=== PATIENT | female | born 1975 | race African-American/Black ===

== ENCOUNTER 2020-03-02 22:16 | Emergency (ER) | payer OTHER, SELFPAY ==
--- NOTE | ~2020-03-02 | XR_ITS ---
EXAMINATION: XR chest 1V portable INDICATION: Cough TECHNIQUE: Portable AP chest at 2343 hours COMPARISON: 08/02/2011 FINDINGS: There are airspace opacities of the mid and lower lung zones. No pleural effusion or pneumo thorax is identified. The heart size is normal for technique. IMPRESSION: 1. Airspace opacities of the mid and lower lung zones, consistent with atelectasis versus pneumonia. Reviewed, dictated and finalized at location A. IMPRESSION: 1. Airspace opacities of the mid and lower lung zones, consistent with atelecta sis versus pneumonia.
[2020-03-02 22:27] VITALS: BP 182/92; PULSE 71; RESP 16; TEMP 36.6; O2SAT 100
[2020-03-02 22:52] VITALS: BP 175/90; PULSE 75; RESP 18; TEMP 36.6; O2SAT 100
--- NOTE | 2020-03-02 23:56 | ED.GENADULT ---
HPI - General Adult General Chief complaint: Unspecified Stated complaint: cant' taste or smell anything/sob Time Seen by Provider: 03/02/20 23:04 Source: RN notes reviewed History of Present Illness HPI narrative: Patient presents emergency department from home for upper respiratory infection. Patient states for the past 2 days she has been having some mild shortness of breath with exertion a mild nonproductive cough and a loss of taste and smell. 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 She denies any fevers or chills sore throat earache chest pain abdominal pain nausea vomiting or any other symptoms Related Data Allergies Allergy/AdvReac Type Severity Reaction Status Date / Time No Known Allergies Allergy Verified 03/02/20 22:58 Review of Systems Review of Systems: Narrative: Gen.: Denies fevers or chills Eyes: Denies eye pain or visual change ENT: Denies congestion reports loss of taste and smell Respiratory: Reports shortness of breath only with exertion and mild nonproductive cough CV: Denies chest pain or palpitations GI: Denies abdominal pain nausea, emesis or diarrhea denies any chance of Musculoskeletal: Denies back pain or muscle pain Neuro: Denies numbness, tingling, weakness or focal weakness Skin: Denies rash Except as documented, all other systems reviewed and negative PMFSH Past Medical History Medical History (Updated 03/02/20 @ 23:58 by Jasen Oropeza DO) Patient denies significant medical history Social History Social History (Updated 03/02/20 @ 23:58 by Jasen Oropeza DO) Smoking status: Never smoker Exam Narrative: Exam Narrative: APPEARANCE: No acute distress, nontoxic, resting in bed EYES: EOMI HEENT: Normocephalic, atraumatic, OMM RESPIRATORY: No respiratory distress Clear to auscultation bilaterally with no rhonchi wheezing or rales. CARDIOVASCULAR: Regular rate and rhythm without murmurs rubs or gallops. ABDOMINAL: Soft, nontender, nondistended, no rebound or guarding MUSCULOSKELETAl: Moves all extremities. No clubbing, cyanosis or edema. NEURO: Awake and alert. Following commands, speech normal, no focal deficits SKIN:: Warm, dry. No rashes lesions or abrasions PSYCHIATRIC: Normal affect/mood, Course Course Emergency Course: Discussed with patient results of workup and diagnosis. Discussed need for follow-up with primary care, proper use of medication, and reasons to return to the emergency department. Patient understands and agrees to current treatment plan Vital Signs Vital signs: Vital Signs Temperature 97.9 F 03/02/20 22:27 Pulse Rate 71 03/02/20 22:27 Respiratory Rate 16 03/02/20 22:27 Blood Pressure 182/92 H 03/02/20 22:27 Pulse Oximetry 100 03/02/20 22:27 Temperature 98 F 03/02/20 22:52 Pulse Rate 75 03/02/20 22:52 Respiratory Rate 18 03/02/20 22:52 Blood Pressure 175/90 H 03/02/20 22:52 Pulse Oximetry 100 03/02/20 22:52 Medical Decision Making Vital Signs Vital Signs: Vital Signs Temperature 97.9 F 03/02/20 22:27 Pulse Rate 71 03/02/20 22:27 Respiratory Rate 16 03/02/20 22:27 Blood Pressure 182/92 H 03/02/20 22:27 Pulse Oximetry 100 03/02/20 22:27 Temperature 98 F 03/02/20 22:52 Pulse Rate 75 03/02/20 22:52 Respiratory Rate 18 03/02/20 22:52 Blood Pressure 175/90 H 03/02/20 22:52 Pulse Oximetry 100 03/02/20 22:52 Discharge Plan Discharge Clinical Impression: Exposure to COVID-19 virus, Suspected COVID-19 virus infection Patient Disposition: Home, Self-Care Condition: Stable Instructions: Antibiotic Form, COVID-19 (Coronavirus Disease 2019) (ED) Additional Instructions: Return for increasing shortness of breath fever or any other symptoms of concern. You need to remain on self quarantine until your test results have come back Prescriptions: New
[2020-03-03 00:15] VITALS: BP 177/83; PULSE 82; RESP 18; TEMP 36.6; O2SAT 99
[2020-03-03 10:37] LABS: SARS-CoV-2 RNA PCR Positive
== END 2020-03-03 00:17 | disposition home or self-care (01) ==
PROVIDERS: Emergency Provider Emergency Medicine; PCP Family Medicine
DX: U07.1 COVID-19 (principal)
CPT/HCPCS: 71045; 87635; 99283; C9803; U0003

== ENCOUNTER 2023-11-24 12:15 | Emergency (ER) | payer OTHER, SELFPAY ==
--- NOTE | ~2023-11-24 | CT_ITS ---
EXAMINATION: CTA abdomen pelvis DATE: 11/24/2023 15:37 INDICATION: Mid abdominal pain. TECHNIQUE: Computed tomographic angiography (CTA) of the abdomen and pelvis was performed with 100 mL Omnipaque-350 intravenous contrast. Automated exposure control and iterative reconstruction techniqu e were employed. The dose-length product was 900.84 mGy-cm. Maximum intensity projection 3D-reconstru ctions of the aorta and other arteries were constructed by the technologist on a separate workstation . COMPARISON: None. FINDINGS: The visualized portions of the lung bases demonstrate mild atelectasis. No pleural effusion . The heart size is normal. No pericardial effusion. There is a 12 mm mass in left hepatic lobe. Ther e are cysts in the liver measuring up to 7 mm. The the spleen, gallbladder, pancreas, adrenal glands, and right kidney are normal. There is cortical thinning of left kidney. There is a 3.1 cm cyst in le ft ovary. There is a 3.4 cm cyst in right ovary. There is a 2.6 cm uterine fibroid. There is divertic ulosis of the colon without evidence of diverticulitis. The appendix is normal. There is no significa nt stenosis of abdominal aorta, celiac axis, superior mesenteric artery, the renal arteries, or infer ior mesenteric artery. There is physiologic fluid in the pelvis. There are no pathologically enlarged lymph nodes. There is fat stranding in the anterior abdominal wall. There is severe lumbar spondylos is. IMPRESSION: 1. Fat stranding in the anterior abdominal wall, most likely scarring from prior surgery such as abdo minoplasty. 2. 12 mm liver mass, which may be benign or malignant. Abdomen MRI without and with contrast is recom mended. 3. Bilateral ovarian cysts, likely follicular cysts. 4. Uterine fibroid. Reviewed, dictated and finalized at location E. NE SURVEYOR IMPRESSION: 1. Fat stranding in the anterior abdominal wall, most likely scarring from prio r surgery such as abdominoplasty. 2. 12 mm liver mass, which may be benign or malignant. Abdomen MRI without and with contrast is recommended. 3. Bilateral ovarian cysts, likely follicular cysts. 4. Uterine fibroid.
[2023-11-24 12:43] VITALS: BP 205/95; PULSE 80; RESP 18; TEMP 36.5; O2SAT 100
[2023-11-24 13:01] LABS: Basophils Percent Auto 0.5 % (0.2-1.2); Eosinophils Absolute Auto 0.1 K/mm3 (0-0.3); Eosinophils Percent Auto 2.3 % (0-4.4); Hemoglobin 12.8 g/dL (12.0-15.0); Immature Granulocyte Absolute 0.01 K/mm3 (0.00-0.031); Immature Granulocyte Percent A 0.2 % (0-0.5); Lymphocytes Absolute Auto 1.97 K/mm3 (0.9-3.2); Lymphocytes Percent Auto 31.9 % (18.3-44.2); Mean Corpuscular HGB Conc 31.2 g/dl (32-36); Mean Corpuscular Hemoglobin 28.4 pg (26-34); Mean Corpuscular Volume 91.1 fl (80-100); Monocytes Absolute Auto 0.3 K/mm3 (0.1-0.6); Monocytes Percent Auto 5.5 % (2.6-8.5); Neutrophils Absolute Auto 3.7 K/mm3 (1.3-6.7); Neutrophils Percent Auto 59.6 % (45.5-73.1); Platelet Count Result 275 k/mm3 (150-375); Red Cell Distribution Width 13.4 % (11.5-14.5); White Blood Count 6.2 K/mm3 (4.5-10.0)
[2023-11-24 13:12] LABS: Alanine Aminotransferase 16 U/L (6-35); Albumin Level 4.2 g/dL (3.5-5.1); Alkaline Phosphatase 59 U/L (38-126); Anion Gap 5 mmol/L (8-16); Aspartate Amino Transferase 20 U/L (14-36); Bilirubin,Total 0.6 mg/dL (0.2-1.3); Blood Urea Nitrogen 13 mg/dL (7-17); Carbon Dioxide 28 mmol/L (22-30); Chloride 105 mmol/L (98-107); Estimated CRCL calculation 76 ml/min; Estimated Glomerular Filt Rate > 60; Glucose 139 mg/dL (65-110); Lipase 107 U/L (23-300); Potassium 4.3 mmol/L (3.4-5.0); Sodium 138 mmol/L (137-145)
[2023-11-24 13:15] VITALS: BP 170/95; PULSE 76; RESP 14; TEMP 36.3; O2SAT 99
[2023-11-24 13:31] LABS: Appearance Urine Clear (Clear); Bilirubin Urine Negative (Negative); Blood Urine Negative (Negative); Color Urine Yellow (Yellow); Glucose Urine UA Negative (Negative); Ketones Urine Trace mg/dL (Negative); Leukocyte Esterase Ur Negative LEU/UL (Negative); Nitrate Urine Negative (Negative); Protein Urine Negative (Negative); pH Urine 5.5 (5.0-9.0)
[2023-11-24 13:38] LABS: Add Urine Microscopic? NO
[2023-11-24 14:07] VITALS: BP 157/90; PULSE 69; RESP 12; O2SAT 100
--- NOTE | 2023-11-24 15:22 | ECG_ITS ---
Measurements Intervals [place] Rate: 76 P: 48 OK: 169 QRS: -11 QRSD: 85 T: 32 QT: 374 QTc: 421 Interpretive Statements SINUS RHYTHM MODERATE VOLTAGE CRITERIA FOR LVH, CONSIDER NORMAL VARIANT [MEETS CRITERIA IN ONE OF: R(aVL), S(V1), R(V5), R(V5/V6)+S(V1)] NONSPECIFIC T-WAVE ABNORMALITY ABNORMAL ECG NO PREVIOUS ECG AVAILABLE FOR COMPARISON Electronically Signed On 11-25-2023 8:00:50 SOCIAL SCIENCES CHAIR by Javier Diana M.D.
--- NOTE | 2023-11-24 15:24 | ED.ABDPAIN ---
HPI - Abdominal Pain General Chief Complaint: Abdominal Pain Stated Complaint: abdominal pain Time Seen by Provider: 11/24/23 14:31 Source: patient Limitations: no limitations History of Present Illness HPI narrative: Patient is a 48-year-old female presents to the emergency department complaining abdominal pain. Patient states the pain started Monday evening, states that is in her epigastric region and periumbilical region and suprapubic region, denies any she has pain in the past, notes this been constant since it started, describes as an ache, nonradiating, tried simethicone and Tylenol and ibuprofen for with no significant relief, admits to associated nausea and belching when eating. Patient denies history Gastroenterology evaluation. Patient denies urinary discomfort, urinary urgency, urinary frequency, diarrhea, melena, hematochezia, recent injuries, recent illness, vomiting, chest pain, difficulty breathing, cough, fever, numbness, weakness, history kidney stones, hematuria. Related Data Allergies Allergy/AdvReac Type Severity Reaction Status Date / Time No Known Allergies Allergy Verified 11/24/23 13:14 Review of Systems Review of Systems: A 10 system review of systems was completed on the patient and is negative except for what is stated in the HPI. Nursing and ancillary documentation was reviewed. [facility] Past Medical History Medical History (Updated 11/24/23 @ 16:49 by Darrin Martin DO) Patient denies significant medical history Social History Social History (Updated 03/02/20 @ 23:58 by Jasen Oropeza, ) Smoking status: Never smoker Comments At time of signature, I have reviewed and agree with nursing past medical, surgical, social and family history unless otherwise noted. Please see the nursing chart for further information. There is no relevant family history pertinent to the presenting complaint. Exam Narrative: CONST: No acute distress. Well nourished. HENMT: Head is normocephalic and atraumatic. Moist mucous membranes. No posterior oropharynx erythema. EYES: No conjunctival icterus, injection, or pallor. PERRL. NECK: No meningeal signs. RESP: Able to speak in full sentences. Normal respiratory effort. CTAB. CARDIO: Regular rate. Regular rhythm. 2+ DP and radial pulses bilaterally. GI: Nondistended. Soft. Mild tenderness to palpation in the epigastric and periumbilical and suprapubic region. No rebound or guarding or rigidity. Negative Rincon sign. No McBurney's point tenderness to palpation. No palpable masses or hernias. : No CVA tenderness to palpation. SKIN: No rashes or lesions noted on exposed skin. NEURO: Oriented x3. Moves all extremities. EXTREM/MSK/BACK: No pedal edema. PSYCH: Normal affect. Course Vital Signs Vital signs: Vital Signs Temperature 97.7 F 11/24/23 12:43 Pulse Rate 80 11/24/23 12:43 Respiratory Rate 18 11/24/23 12:43 Blood Pressure 205/95 H 11/24/23 12:43 Pulse Oximetry 100 11/24/23 12:43 Oxygen Delivery Room Air 11/24/23 12:43 Temperature 97.4 F L 11/24/23 13:15 Pulse Rate 75 11/24/23 16:02 Respiratory Rate 12 11/24/23 16:02 Blood Pressure 194/92 H 11/24/23 16:02 Pulse Oximetry 99 11/24/23 16:02 Oxygen Delivery Room Air 11/24/23 13:15 MDM - Abdominal Pain MDM Narrative Medical decision making narrative: Patient presents with the above complaint. Initial vitals are remarkable for no significant abnormalities. Physical examination as noted above. Plan discussed: Laboratory analysis, EKG, CT abdomen pelvis, famotidine, morphine 4 mg IV push, 1 L bolus IV fluids normal saline. Patient was reassessed at the bedside. No changes in physical exam. Patient is in no acute distress. Patient denies any significant pain at this time, resting comfortably, tolerating p.o.. Patient informed of the results, understands to follow-up with a hat cone inspector and is aware of the inciden
[2023-11-24] MEDS: SODIUM CHLORIDE 0.9% IV 1,000 ML 999 ML IV CONT (15:56)
[2023-11-24] MEDS: MORPHINE SULFATE (*CRX) 4 MG/ML INJ IV PUSH (15:58)
[2023-11-24 16:02] VITALS: BP 194/92; PULSE 75; RESP 12; O2SAT 99
[2023-11-24] MEDS: FAMOTIDINE 20 MG/2 ML VIAL IV PUSH (16:02)
[2023-11-24] MEDS: ONDANSETRON INJ 4 MG/2 ML VIAL IV PUSH (16:04)
[2023-11-24 16:15] LABS: CRP 0.5 mg/dL (<1.0)
[2023-11-24 16:24] LABS: Troponin I < 0.012 ng/mL (0.000-0.034)
== END 2023-11-24 17:53 | disposition home or self-care (01) ==
PROVIDERS: Emergency Medicine; Emergency Provider Student in an Organized Health Care Education/Training Program
DX: R10.13 Epigastric pain (principal); R11.0 Nausea; R16.0 Hepatomegaly, not elsewhere classified; N83.202 Unspecified ovarian cyst, left side; N83.201 Unspecified ovarian cyst, right side; D25.9 Leiomyoma of uterus, unspecified; R94.31 Abnormal electrocardiogram [ECG] [EKG]
CPT/HCPCS: 36415; 74174; 80053; 81003; 81025; 83605; 83690; 84484; 85025; 86140; 93005; 96361; 96374; 96375; 99284; J2270; J2405; J7030; Q9967

== ENCOUNTER 2023-11-30 16:02 | Outpatient (CLI) | payer OTHER, SELFPAY ==
--- NOTE | ~2023-11-30 | XR_ITS ---
EXAMINATION: XR abdomen/kub 1V DATE: 11/30/2023 16:30 INDICATION: High-pitched bowel sounds. Central abdominal pain. TECHNIQUE: A supine view of the abdomen on 3 radiographs was obtained. COMPARISON: None. FINDINGS: Gas in the sigmoid colon extending into the left upper quadrant. Moderate amount of stool in the asce nding and transverse colon extends to the splenic flexure. No dilated loops of gas-filled bowel to jacinto ggest obstruction. Prominent phlebolith in the right hemipelvis. No other suspicious calcification is in the abdomen or pelvis. IMPRESSION: 1. No dilated gas-filled bowel to suggest obstruction. Reviewed, dictated and finalized at location A. ER
== END 2023-11-30 16:03 | disposition home or self-care (01) ==
LOC: ANHIMG 16:03
PROVIDERS: Visit Provider Nurse Practitioner
DX: R19.15 Other abnormal bowel sounds (principal)
CPT/HCPCS: 74018

== ENCOUNTER 2023-12-22 09:01 | Outpatient (CLI) | payer OTHER, SELFPAY ==
--- NOTE | ~2023-12-22 | US_ITS ---
EXAMINATION: US pelvic complete w TV DATE: 12/22/2023 INDICATION: Benign neoplasm of connective and other soft tissues TECHNIQUE: Multiple transabdominal and endovaginal sonographic images of the pelvis were obtained. COMPARISON: CT, 11/24/2023 FINDINGS: The uterus measures 9.3 x 4.9 x 7.3 cm. There is a 3.4 x 2.8 x 2.9 cm isoechoic mass of the right uterine body, consistent with intramural fibroid. Nabothian cysts are noted in the cervix. The endometrial complex measures 4 mm. The right ovary measures 4.0 x 2.9 x 2.4 cm. The left ovary measu res 2.8 x 1.9 x 3.1 cm. There is normal vascular flow in the ovaries. There is no free fluid in the p twila. IMPRESSION: 1. Intramural fibroid of uterus. Reviewed, dictated and finalized at location B. R LODGE CLERK
--- NOTE | ~2023-12-22 | MR_ITS ---
EXAMINATION: MR abdomen wo/w con INDICATION: Liver mass on recent CT TECHNIQUE: Coronal SSFSE ARC, WATER:coronal LAVA-FLEX, Coronal 2D FIESTA FatSat, Axial SSFSE BH ARC, Axial 3D DualEcho BH, Axial SSFSE-IR, Axial DWI b=500, Axial 2D FIESTA FatSat, pre and dynamic postco ntrast Axial LAVA ARC, postcontrast Coronal In and Opposed phase LAVA FLEX COMPARISON: CT, 11/24/2023 CONTRAST: Multihance, 20 cc FINDINGS: There is a 10 mm T1 isointense, T2 hyperintense lesion in the surface of the liver abutting liver segment II. There is no enhancement after contrast administration. Small cysts of the liver me asure up to 8 mm. The spleen, pancreas, gallbladder, and adrenal glands are normal. There are no path ologically enlarged abdominal lymph nodes. The kidneys are unremarkable. Although limited by respirat ory motion, no abnormal enhancement is identified after contrast administration. IMPRESSION: 1. Benign-appearing lesion abutting liver segment II. No suspicious liver lesion identified. Reviewed, dictated and finalized at location B. FILER IMPRESSION: 1. Benign-appearing lesion abutting liver segment II. No suspicious liver lesio n identified.
== END 2023-12-22 09:02 | disposition home or self-care (01) ==
PROVIDERS: Visit Provider Nurse Practitioner
DX: D25.1 Intramural leiomyoma of uterus (principal); R16.0 Hepatomegaly, not elsewhere classified; R93.2 Abnormal findings on diagnostic imaging of liver and biliary tract
CPT/HCPCS: 74183; 76830; 76856; A9577

== ENCOUNTER 2024-02-01 00:47 | Day surgery (SDC) | payer OTHER, SELFPAY ==
[2024-01-16 13:30] VITALS: BMI 37.4
[2024-02-01 11:37] VITALS: BP 181/107; PULSE 82; RESP 18; TEMP 36.2; O2SAT 98; BMI 38.8
[2024-02-01] MEDS: LACTATED RINGERS 1,000 ML 150 ML IV CONT (11:43)
--- NOTE | 2024-02-01 12:14 | P.PNAN_ITS ---
Anes - Initial Pre Proc Eval Procedure: Operation Date: 02/01/24 13:00 Proposed Procedures p Esophagogastroduodenoscopy & Colonoscopy - Girish Oviedo MD Date/Time: 02/01/24 12:14 Surgeon: Girish Oviedo MD Pre Op Diagnosis: IBS-C, Epigastric pain,nausea Patient Data Age: 48 Gender: F Height: 1.63 m Weight: 102.7 kg Last Vital Signs Temp 97.1 F L 02/01/24 11:37 Pulse 82 02/01/24 11:37 Resp 18 02/01/24 11:37 BP 181/107 H 02/01/24 11:37 Pulse Ox 98 02/01/24 11:37 O2 Del Method Room Air 02/01/24 11:37 Allergies Allergy/AdvReac Type Severity Reaction Status Date / Time No Known Allergies Allergy Verified 02/01/24 11:35 Home Medications Medication Instructions Recorded Confirmed Type omeprazole 40 mg capsule,delayed 40 mg PO DAILY #30 caps 11/30/23 02/01/24 Rx release sucralfate 1 gram tablet (Carafate) 1 g PO ACHS #120 tabs 11/30/23 02/01/24 Rx peg 3350-electrolytes 236 240 ml PO Q10M #4,000 mL 12/18/23 Rx gram-22.74 gram-6.74 gram-5.86 gram solution (Golytely) Patient hx anesthesia problems: none Family hx anesthesia problems: none Results Review: All pre-operative results and documents have been reviewed as part of the pre- operative evaluation. [facility] Past Medical History Medical History (Updated 11/30/23 @ 16:02 by Tiffanie Mcnamara, CHRISTINA) Abdominal bloating Anemia Epigastric abdominal pain Hypertension Irritable bowel syndrome with constipation Liver mass Migraine Obesity Patient denies significant medical history Surgical History Surgical History S/P abdominoplasty S/P tonsillectomy and adenoidectomy Family History Family History Other Diabetes mellitus Heart disease Hypertension Social History Social History Smoking status: Never smoker Alcohol intake: never Substance use: never Substance use type: does not use Do You Feel Safe in your Home?: Yes Lack of Transportation: No Lack of Food: Never True Current Housing: I Have Housing Concerned About Future Housing: No Difficulty Paying Gas/Electric Bills: No Difficulty Paying for Meds: No Currently Unemployed: No Education: Trade/Vocational Certificate Difficulty w/ Childcare or Family Care: No Spiritual care concerns: No Anes - Eval Final PreProcedure Day of Procedure 02/01/24 12:14 Patient weight: obese Heart: regular rate and rhythm Lungs: clear to auscultation Airway: Mallampati scale class II Neurological: alert and oriented Last oral intake: >/= 8 hours ASA classification: III Emergent: no Anesthetic plan: proceed Anesthesia type and monitoring: general GIVS and standard monitoring Results Review: All pre-operative results and documents have been reviewed as part of the pre- operative evaluation. Informed Consent: The patient's anesthetic plan and its attendant risks and benefits were discussed with the patient/family/POA. Questions were solicited and answers provided to the satisfaction of the patient/family/POA.
--- NOTE | 2024-02-01 12:21 | PM.HPGS ---
History of Present Illness History of Present Illness Consent: Risks, benefits, and alternatives have been discussed and questions answered. Patient agrees to proceed with procedure. Chief complaint: IBS-C, Epigastric pain,nausea Narrative: Adelia Chinchilla is a 48 year old female with presentation to ER because of epigastric pain and nausea, sent home with ppi and carafate, feeling better and not longer using nsaid's. Never had scopes. CT scan no major findings, MRI showed normal liver. Review of Systems Review of Systems: All systems reviewed & are unremarkable except as noted in HPI and below PMFSH Past Medical History Medical History (Updated 02/01/24 @ 12:23 by Girish Oviedo MD) Abdominal bloating Anemia Colon cancer screening Epigastric abdominal pain Hypertension Irritable bowel syndrome with constipation Liver mass Migraine Obesity Patient denies significant medical history Surgical History Surgical History S/P abdominoplasty S/P tonsillectomy and adenoidectomy Family History Family History Other Diabetes mellitus Heart disease Hypertension Social History Social History Smoking status: Never smoker Alcohol intake: never Substance use: never Substance use type: does not use Do You Feel Safe in your Home?: Yes Lack of Transportation: No Lack of Food: Never True Current Housing: I Have Housing Concerned About Future Housing: No Difficulty Paying Gas/Electric Bills: No Difficulty Paying for Meds: No Currently Unemployed: No Education: Trade/Vocational Certificate Difficulty w/ Childcare or Family Care: No Spiritual care concerns: No Meds Home Medications and Allergies Home Medications Medication Instructions Recorded Confirmed Type omeprazole 40 mg capsule,delayed 40 mg PO DAILY #30 caps 11/30/23 02/01/24 Rx release sucralfate 1 gram tablet (Carafate) 1 g PO ACHS #120 tabs 11/30/23 02/01/24 Rx peg 3350-electrolytes 236 240 ml PO Q10M #4,000 mL 12/18/23 Rx gram-22.74 gram-6.74 gram-5.86 gram solution (Golytely) Allergies Allergy/AdvReac Type Severity Reaction Status Date / Time No Known Allergies Allergy Verified 02/01/24 11:35 Vital Signs Vital Signs - 24 hr 02/01/24 11:37 Temperature 97.1 F L Pulse Rate 82 Respiratory Rate 18 Blood Pressure 181/107 H Pulse Oximetry 98 Oxygen Delivery Room Air Exam Const: General: comfortable and no acute distress HENMT: Face/Nose/Sinus: Normal nares present Eyes: General: appearance normal, both eyes and all related structures Neck: Neck: no JVD Resp: Auscultation: clear to auscultation bilaterally Cardio: Rate: regular rate Rhythm: regular rhythm GI: Inspection: non-distended GI Palp: Yes Soft to palpation Skin: General skin exam: normal color Neuro: General: gait normal Speech: normal speech Extrem: General: normal to inspection Psych: Mental Status: mental status grossly normal Assessment and Plan Assessment and plan (1) Epigastric abdominal pain: Code(s): R10.13 - Epigastric pain Status: Acute Assessment and Plan: egd with bx (2) Colon cancer screening: Code(s): Z12.11 - Encounter for screening for malignant neoplasm of colon Status: Acute Assessment and Plan: colonoscopy
--- NOTE | 2024-02-01 12:27 | SUR.OPER ---
EGD: START-1227 END-1230, COLON: START-1235 END-1244
[2024-02-01 12:48] VITALS: BP 143/66; PULSE 88; RESP 20; O2SAT 99
[2024-02-01 12:58] VITALS: BP 131/65; PULSE 86; RESP 20; O2SAT 100
[2024-02-01 13:08] VITALS: BP 151/84; PULSE 82; RESP 20; O2SAT 100
== END 2024-02-01 13:18 | disposition home or self-care (01) ==
PROVIDERS: Visit Provider Internal Medicine Gastroenterology
PROC: 0DJ08ZZ Inspection of Upper Intestinal Tract, Via Natural or Artificial Opening Endoscopic (ICD-10-PCS; CPT 43235; principal; 2024-02-01 13:00)
DX: Z12.11 Encounter for screening for malignant neoplasm of colon (principal); K63.5 Polyp of colon; K64.8 Other hemorrhoids; K29.70 Gastritis, unspecified, without bleeding; I10 Essential (primary) hypertension; K58.1 Irritable bowel syndrome with constipation; D64.9 Anemia, unspecified; R16.0 Hepatomegaly, not elsewhere classified; E66.9 Obesity, unspecified; Z68.38 Body mass index [BMI] 38.0-38.9, adult; Z98.890 Other specified postprocedural states
CPT/HCPCS: 43239; 45385; 87081; 88305; J2704; J7120